=== PATIENT | male | born 1950 | race Caucasian/White ===

== ENCOUNTER 2018-01-14 09:25 | Outpatient (CLI) | payer MEDICARE ==
--- NOTE | 2018-01-14 15:18 | PET ---
PET CT: HISTORY: 67-year-old male with left lung mass and left adrenal mass. Smoker. Coughing mucus frequently. TECHNIQUE: PET scanning with CT attenuation correction was performed from the base of the brain through the prox imal thighs following the intravenous administration of 13 mCi of F18-FDG in the left antecubital fos sa. Imaging was performed after an uptake interval of 48 minutes. COMPARISON: None. CORRELATION: CT chest dated 12/23/17 from [facility]. FINDINGS: There is hypermetabolic activity in a right infraorbital paranasal soft tissue mass with a SUV of 8.1 . There is increased FDG localization in the left hilar/perihilar mass noted on the CT scan with a SUV of 12.2. There is also increased FDG localization in the peripheral posterior left lower lobe lung mass with a SUV of 4.2. Hypermetabolic subcarinal lymph node is seen with a SUV of 3.3. No rachel hypermetabolism is seen in the neck, axilla, abdomen, pelvis, or inguinal regions. No hyperm etabolic liver, adrenal, or skeletal lesions are seen. The left adrenal nodule seen on the CT scan de monstrates no abnormal FDG localization. The CT scan used for attenuation correction demonstrates no evidence of pleural effusions or ascites. There is sigmoid diverticulosis. There is physiologic activity in the GI and tracts, and visualized portions of the brain. IMPRESSION: Findings are suspicious for left lung malignancy and metastatic disease. POS: [facility]
== END 2018-01-14 09:26 | disposition home or self-care (01) ==
LOC: PET 09:25
PROVIDERS: ATTEND Internal Medicine
DX: R91.1 Solitary pulmonary nodule (principal)
CPT/HCPCS: 78815; A9552

== ENCOUNTER 2018-01-26 08:55 | Day surgery (SDC) | payer MEDICARE ==
[2018-01-26] MEDS ORDERED: Fentanyl 100 MCG/2 ML VIAL ONE (08:57)
[2018-01-26] MEDS ORDERED: Lidocaine 1% (PF) 30 ML VIAL ONE (08:58)
[2018-01-26] MEDS ORDERED: Lidocaine 4% PF 5 ML AMP NEB SCH (09:15)
[2018-01-26] MEDS ORDERED: Sodium Chloride 0.9% 1,000 ML IV SCH (09:15)
--- NOTE | 2018-01-26 11:48 | OP ---
DATE OF PROCEDURE: 01/26/2018 SERVICE: Pulmonary Medicine PROCEDURE: Fiberoptic bronchoscopy with: 1. Visual airway inspection. 2. Bronchial washing from the left lung. 3. Endobronchial biopsy from the left lung. 4. Solomon needle FNA of Station 7 subcarinal lymph node. PREPROCEDURE DIAGNOSES: 1. Pulmonary mass. 2. Mediastinal lymphadenopathy. POSTPROCEDURE DIAGNOSES: 1. Pulmonary mass. 2. Mediastinal lymphadenopathy. PROCEDURE INTERNET SALES REPRESENTATIVE: Alex Delgado M.D. MEDICATIONS USED: For a list of medications use, please refer to anesthesia documentation. PREANESTHESIA ASSESSMENT: H&P had been performed. The patient's medications and allergies were reviewed. Informed consent was obtained after discussing risks, benefits, and rationale for performing the procedure as well as alternative options. DESCRIPTION OF PROCEDURE: A timeout was performed identifying the correct procedure with name and date of . A diagnostic fiberoptic bronchoscope was introduced through the 8.0 endotracheal tube. The bronchoscope was advanced into the trachea where a tracheobronchial tree inspection was carried out with clear identification of the right upper lobe, right middle lobe, right lower lobe. There was an endobronchial lesion that prevented passing the bronchoscope into the left upper lobe. That being said, I could see the opening into both of these things and the instruments were able to pass through these strictures without difficulty. There was certainly endobronchial changes that were present at this location. Outside of this, anatomy was normal to the segmental level. Bronchial washing was obtained from the left lung. Endobronchial biopsies were obtained from the distal left main stem bronchus at the bifurcation of the left upper lobe and left lower lobe. Then a Solomon needle FNA of Station 7 was performed. Hemostasis was verified and the bronchoscope was subsequently removed from the patient. FINDINGS: 1. Endobronchial mass in the distal left main stem bronchus at the bifurcation of the left upper lobe and left lower lobe with inability to pass the scope into the left upper lobe. Instruments could easily pass into both the left upper lobe and left lower lobe. The left lower lobe was also stenotic, but all distal segments were identified. 2. Secretions were moderate and thick/mucoid without significant purulence. SPECIMENS OBTAINED: 1. Bronchial washing for cytology. 2. Endobronchial biopsy of the left mainstem endobronchial lesion. 3. Solomon needle FNA of Station 7, subcarinal lymph node. COMPLICATIONS: None. ESTIMATED BLOOD LOSS: Two mL. FLUOROSCOPY TIME: None. DISPOSITION The patient will be discharged home if he meets criteria in the postanesthesia care unit. STEFFEN
[2018-01-26] MEDS ORDERED: PROPOFOL 200 MG/20 ML VIAL ONE (16:47)
[2018-01-26] MEDS ORDERED: Lidocaine 1% PF 5 ML VIAL ONE (16:47)
[2018-01-26] MEDS ORDERED: Dexamethasone 20 MG/5 ML VIAL ONE (16:47)
[2018-01-26] MEDS ORDERED: Succinylcholine Chloride 20 MG/ML 10 ml SYRINGE FS ONE (16:47)
[2018-01-26] MEDS ORDERED: Ondansetron HCl/PF 4 MG/2 ML Vial ONE (16:47)
[2018-01-26] MEDS ORDERED: Glycopyrrolate 0.2 MG/ML 5 ML SYRINGE ONE (16:47)
== END 2018-01-26 13:35 | disposition home or self-care (01) ==
LOC: SDC 08:55
PROVIDERS: ATTEND Internal Medicine
PROC: 0BB78ZX Excision of Left Main Bronchus, Via Natural or Artificial Opening Endoscopic, Diagnostic (ICD-10-PCS; principal; 2018-01-26)
PROC: 07D78ZX Extraction of Thorax Lymphatic, Via Natural or Artificial Opening Endoscopic, Diagnostic (ICD-10-PCS; 2018-01-26)
DX: C34.02 Malignant neoplasm of left main bronchus (principal); R59.0 Localized enlarged lymph nodes; I25.10 Atherosclerotic heart disease of native coronary artery without angina pectoris; I10 Essential (primary) hypertension; E78.5 Hyperlipidemia, unspecified; K21.9 Gastro-esophageal reflux disease without esophagitis; F17.210 Nicotine dependence, cigarettes, uncomplicated; Z79.82 Long term (current) use of aspirin; Z79.2 Long term (current) use of antibiotics; Z79.899 Other long term (current) drug therapy
CPT/HCPCS: 88112; 88173; 88305; 88313; 88341; 88342; J1100; J2001; J2405; J2704; J3010; J7620

== ENCOUNTER 2018-05-10 12:51 | Inpatient (IN) | payer MEDICARE, MEDICAID ==
[~2018-05-10 12:51] MED LIST: ISOVUE-370 76%-LOCM 1 ML ONE
[2018-05-10 13:32] LABS: #Basophils 0.1 thou/uL (0.0-0.2); #Lymphocytes 0.2 thou/uL (1.20-3.40); #Monocytes 0.6 thou/uL (0.11-0.59); #Neutrophils 5.7 thou/uL (1.40-6.50); %Basophils 1.1 % (0.0-1.0); %Eosinophils 0.4 % (0.0-10.0); %Lymphocytes 2.7 % (21.0-51.0); %Monocytes 9.8 % (0.0-10.0); Hemoglobin 11.4 g/dL (14.0-18.0); Mean Corpuscular HGB CONC 35.7 g/dL (32.0-36.0); Mean Corpuscular Hemoglobin 34.1 pg (27.0-31.0); Mean Corpuscular Volume 95.6 fL (78.0-98.0); Platelet Count 101 thou/uL (130-400); RBC Distribution Width 17.4 % (11.5-14.5); Red Blood Cell (RBC) Count 3.33 mill/uL (4.70-6.10); White Blood Cell (WBC) Count 6.6 thou/uL (4.8-10.8)
[2018-05-10 13:36] LABS: PTT 28.2 SEC (22.9-36.1)
[2018-05-10 13:37] LABS: D-Dimer Test 0.94 *mcg/mL (0.27-0.43)
[2018-05-10] MEDS ORDERED: Albuterol Sulfate 2.5 mg/0.5 ml Neb ONE (13:41)
[2018-05-10] MEDS ORDERED: Albuterol Sulfate 2.5 mg/3 ml Neb ONE (13:41)
[2018-05-10 13:53] LABS: ALT (SGPT) 9 U/L (8-55); AST (SGOT) 10 U/L (5-34); Albumin 3.6 g/dL (3.4-4.8); Alkaline Phosphatase 74 U/L (40-150); Anion Gap 14 mmol/L (10-20); BUN (Urea Nitrogen) 20 mg/dL (8.4-25.7); Bilirubin, Total 0.4 mg/dL (0.2-1.2); Calc. Creatinine Clearance 0 mL/min (70-130); Calcium 8.9 mg/dL (7.8-10.44); Carbon Dioxide 20 mmol/L (23-31); Chloride 105 mmol/L (98-107); Estimated GFR-MDRD 67; Globulin 2.9 g/dL (2.4-3.5); Glucose 160 mg/dL (80-115); Lipase 12 U/L (8-78); Magnesium 1.8 mg/dL (1.6-2.6); Protein, Total 6.5 g/dL (5.8-8.1); Sodium 135 mmol/L (136-145)
[2018-05-10 13:57] LABS: CKMB 1.2 ng/mL (0-6.6); Troponin I Less than 0.010 ng/mL (< 0.028)
--- NOTE | 2018-05-10 14:18 | RAD ---
CHEST ONE VIEW UPRIGHT PORTABLE: Date: 05-10-18 History: 67-year-old male with history of shortness of breath. History of lung cancer with wheezing. Comparison: 12-17-17 FINDINGS: Monitor leads overlie the chest. Post underlying sternotomy. Poorly circumscribed mass overlying and posterior to the left hilum, stable. Increased linear and interstitial markings in the right lung wit h some blunting of the costophrenic angles bilaterally. Biapical pleural thickening. IMPRESSION: Overall stable poorly circumscribed mass overlying and posterior to the left hilum. Scattered chronic lung changes, more so in the right lung. POS: [facility]
[2018-05-10] MEDS ORDERED: cefTRIAXone\\ROCEPHIN 1 GM VIAL ONE (14:38)
[2018-05-10] MEDS ORDERED: methylPREDNISolone Sod Succ/PF 125 MG/2 ML VIAL ONE (14:38)
[2018-05-10] MEDS ORDERED: Meperidine HCl/PF 25 MG/ML VIAL ONE (15:06)
--- NOTE | 2018-05-10 15:45 | CT ---
CHEST CT ANGIOGRAM WITH 3D RENDERING: History: 67-year-old male with shortness of breath and right upper quadrant abdominal pain, getting worse. Comparison: 12-13-[address] scan with IV contrast. FINDINGS: No significant CT evidence of a cute pulmonary embolism. 3.2 cm diameter posterior left hilar mass wi th narrowing of left lower lobe bronchi and marked narrowing of the left lower lobe pulmonary artery segment with some narrowing of lingular bronchi and lingular pulmonary artery. There is a second mass with associate cavity measuring approximately 1.2 x 1.9 cm in the posterior left lower lobe. This ma ss is increased somewhat in size when compared to the prior 12-23-17 study. The more poorly circumscri bed left hilar mass does not appear to have significantly increased in size. There is extensive bilat eral and interstitial reticular nodular parenchymal changes and bilateral emphysema changes, evidence for chronic interstitial lung disease. No significant acute pleural effusion. Visualized upper abdom en is unremarkable. Small hiatal hernia. IMPRESSION: No CT evidence for significant acute PE. Large poorly circumscribed spiculated mass involving the lef t hilum, evidence for neoplasm with narrowing of multiple lower lobe bronchi and lower lobe pulmonary arteries as well as some lingular bronchi and lingular pulmonary artery. There is a second mass in t he left lower lobe associated with a cavity, approximately 1.2 x 1.9 cm, increasing in size from the prior study. The left hilar mass shows little overall change. Fairly extensive bilateral reticular no dule and interstitial and bullous emphysema changes evidence for chronic lung disease. Other findings as above. POS: [facility]
--- NOTE | 2018-05-10 16:00 | RAD ---
CHEST ONE VIEW: History: Central line placement. Comparison: Earlier same date. FINDINGS/IMPRESSION: Tip of a right internal jugular central venous catheter overlies the superior vena cava. No evidence of pneumothorax. Other findings are stable. POS: [facility]
[2018-05-10] MEDS ORDERED: Sodium Chloride 0.45% 1,000 ML IV SCH (19:00)
[2018-05-10] MEDS ORDERED: Acetaminophen 325 MG TAB PO PRN (19:01)
[2018-05-10] MEDS ORDERED: Ondansetron ODT 4 MG TAB PO PRN (19:01)
[2018-05-10] MEDS ORDERED: hydrALAZINE 20 MG/ML VIAL SLOW IVP PRN (19:01)
[2018-05-10] MEDS ORDERED: Ondansetron HCl/PF 4 MG/2 ML Vial IVP PRN (19:01)
[2018-05-10 19:17] VITALS: BMI 27.6
[2018-05-10] MEDS: Sodium Chloride 0.9% 1,000 ML IV SCH (19:45)
[2018-05-10] MEDS: Vancomycin HCl 1 GM in Premix Bag 1 BAG IVPB SCH (21:12)
--- NOTE | 2018-05-10 23:14 | HP ---
PRIMARY CARE PHYSICIAN: Dr. Diamante Fleming. CHIEF COMPLAINT: Shortness of breath. HISTORY OF PRESENT ILLNESS: Please note that the history of present illness is very limited as the p atient is extremely dyspneic. He is on BiPAP and when he talks, his oxygen saturations dropped into the 70s. He is, however, very cooperative and in quite a good mood. Mr. Montalvo is a 67-year-old gen tleman that was recently diagnosed with lung cancer. He has a fairly large mass in the left hilum. He was in his usual state of health until recently when he began complaining of severe dyspnea on exe rtion. He says he was unable to walk even 15 feet without becoming severely short of breath. He was tremulous and feeling dizzy. He also notes a cough which was productive of pinkish to reddish blood . He denies any chest pain; however, no fevers, no chills. As a result, he came to the emergency ro om for evaluation where he was found to be hypoxic. He was given IV steroids as well as neb treatmen t without much improvement in his symptoms. He required placement on BiPAP. He is being admitted fo r further evaluation and treatment. Chest x-ray and CT scan did not show any significant changes oth er than the large hilar mass and some interstitial lung changes which could be associated with chroni c obstructive pulmonary disease. REVIEW OF SYSTEMS: All systems were reviewed and are negative except for that mentioned in the histo ry of present illness. PAST MEDICAL HISTORY: Significant for lung cancer, presumed emphysema, hyperlipidemia, hypertension, gastroesophageal reflux disease, coronary artery disease. PAST SURGICAL HISTORY: He has had a bypass grafting x3. ALLERGIES: No known drug allergies. SOCIAL HISTORY: He is , has 2 children. He smokes about a half a pack a day for 58 years. Denies any alcohol use. CODE STATUS: FULL CODE. However, he would not want to be on the ventilator for a prolonged period o f time. He says his son was his medical surrogate; however, he says he would like his sister to be i ncluded in that because he is more available and her name is Sarah Arroyo. CURRENT MEDICATIONS: Aspirin 81 mg daily, Mucinex 1200 mg daily, isosorbide extended release 30 mg d aily, lisinopril 10 mg once a day, Nexium 20 mg a day. PHYSICAL EXAMINATION: GENERAL: The patient is alert and oriented. He is actually comfortable on BiPAP. However, he does desat very easily with just a few words. VITAL SIGNS: His blood pressure was 106/57, heart rate 102, respiratory rate of 24, and he is afebri le. HEENT: Pupils are equal, round, and reactive. Extraocular muscles are intact. His sclerae are anic teric. Throat: There is no erythema, no exudates. NECK: There is no adenopathy, no bruits. LUNGS: He has got fairly tight wheezing throughout his lung sanders in both the right and the upper a nd lower lobes. I did not appreciate any rales. CARDIOVASCULAR: Heart rate is slightly rapid. It is regular. He has a grade 2/6 systolic murmur. ABDOMEN: Soft, it is nontender, nondistended. Positive for bowel sounds. There is no rebound or gu arding. EXTREMITIES: There is no clubbing, cyanosis, no edema. NEUROLOGIC: The exam is grossly nonfocal with cranial nerves II-XII being grossly intact. Muscle st rength is 5/5 in both his upper and lower extremities. SKIN AND INTEGUMENT: There are no skin changes. No rash. LABORATORY RESULTS: Sodium 135, potassium 4.0, chloride is 105, CO2 is 20, BUN of 20, creatinine 1.0 9, glucose is 160. His troponin is less than 0.010. White blood cell count 6.6, hemoglobin 11.4, he matocrit is 31.9, platelet count is 101. INR is 1.0. D-dimer was 0.94. On his CT angiogram, there was no evidence of pulmonary embolism. There was a large poorly circumscribed spiculated mass involv ing the left hilum and narrowing of the lower lobe bronchi, extensive reticular nodular change. ASSESSMENT AND PLAN: This is a pleasant 67-year-old gentleman who presents to the emergency room wit h acute respiratory distress with hypoxemia, likely as a result of chronic obstructive pulmonary dise ase exacerbation; however, a postobstructive pneumonia cannot be ruled out. He is currently on BiPAP . He will be admitted to the [facility]. Pulmonary medicine will be consulted. He will be placed on broa d spectrum IV antibiotics as well as DuoNeb treatments and IV steroids. He will also be placed on de ep venous thrombosis and gastrointestinal prophylaxis. With regards to hypertension, we will use his usual antihypertensive medications as well as p.r.n. me dications for additional blood pressure control. Continue a proton pump inhibitor and further recomm endations will depend on the patient's clinical course.
[2018-05-10] MEDS: Piperacillin/Tazobactam 3.375 GM in Sodium Chloride 0.9% 100 ML IVPB SCH (23:59)
[2018-05-11] MEDS: Piperacillin/Tazobactam 3.375 GM in Sodium Chloride 0.9% 100 ML IVPB SCH ×4 (05:33→23:35)
[2018-05-11 06:21] LABS: Anion Gap 12 mmol/L (10-20); BUN (Urea Nitrogen) 14 mg/dL (8.4-25.7); Calc. Creatinine Clearance 101 mL/min (70-130); Calcium 9.3 mg/dL (7.8-10.44); Carbon Dioxide 22 mmol/L (23-31); Chloride 106 mmol/L (98-107); Estimated GFR-MDRD Greater than 90; Glucose 194 mg/dL (80-115); Potassium 4.3 mmol/L (3.5-5.1); Sodium 136 mmol/L (136-145)
[2018-05-11 06:30] LABS: #Lymphocytes 0.1 thou/uL (1.20-3.40); #Monocytes 0.1 thou/uL (0.11-0.59); #Neutrophils 2.4 thou/uL (1.40-6.50); %Lymphocytes 4.4 % (21.0-51.0); %Monocytes 2.3 % (0.0-10.0); %Neutrophils 92.3 % (42.0-75.0); Hemoglobin 10.4 g/dL (14.0-18.0); Mean Corpuscular Hemoglobin 34.8 pg (27.0-31.0); Mean Corpuscular Volume 96.8 fL (78.0-98.0); Mean Platelet Volume 7.4 fL (7.4-10.4); Platelet Count 87 thou/uL (130-400); RBC Distribution Width 17.4 % (11.5-14.5); Red Blood Cell (RBC) Count 2.98 mill/uL (4.70-6.10); White Blood Cell (WBC) Count 2.6 thou/uL (4.8-10.8)
[2018-05-11] MEDS: Enoxaparin Sodium 30 MG/0.3 ML SYRINGE SC SCH (08:27)
[2018-05-11] MEDS: Pantoprazole 40 MG VIAL IVP SCH (08:27)
[2018-05-11] MEDS: Vancomycin HCl 1 GM in Premix Bag 1 BAG IVPB SCH ×2 (08:27→21:00)
--- NOTE | 2018-05-11 09:10 | PDOC.PN ---
- Subjective Encounter Start Date: 05/11/18 Encounter Start Time: 09:09 Mr. Montalvo was seen today in follow-up of Acute respiratory failure, likely from COPD exacerbation. He is feeling better. He has not required BiPAP since last night. - Objective Resuscitation Status: Resuscitation Status FULL:Full Resuscitation MAR Reviewed: Yes Vital Signs & Weight: Vital Signs (12 hours) Temp Pulse Resp BP Pulse Ox 05/11/18 07:32 93 15 99 05/11/18 07:31 97.4 F L 102 H 15 123/69 100 05/11/18 03:43 97.1 F L 105 H 18 124/61 100 05/10/18 23:43 97.4 F L 108 H 18 106/62 100 05/10/18 23:02 99 Weight Weight 172 lb 4.8 oz I&O: 05/10/18 05/11/18 05/12/18 06:59 06:59 06:59 Intake Total 1352 Output Total 950 Balance 402 Result Diagrams: 05/11/18 05:51 05/11/18 05:51 Phys Exam - Physical Examination HEENT: PERRLA Respiratory: wheezing present + expiratory wheeze bilaterally, no rales Cardiovascular: RRR, no significant murmur, no rub Gastrointestinal: soft, non-tender, positive bowel sounds Musculoskeletal: no edema + Palpable pulses Neurological: non-focal, moves all 4 limbs Dx/Plan (1) Acute respiratory failure with hypoxemia Code(s): J96.01 - ACUTE RESPIRATORY FAILURE WITH HYPOXIA Status: Acute (2) Lung cancer Code(s): C34.90 - MALIGNANT NEOPLASM OF UNSP PART OF UNSP BRONCHUS OR LUNG Status: Acute (3) Benign essential hypertension Code(s): I10 - ESSENTIAL (PRIMARY) HYPERTENSION Status: Chronic - Plan * Acute respiratory failure- likely from COPD exacerbation- discussed with Dr. Barrera- will continue Duonebs, and IV antibiotics * Continue steroids, but will consider tappering dose soon * HTN - blood pressure is stable.
[2018-05-11] MEDS ORDERED: Non-Formulary Item 1 EACH (Omeprazole Magnesium [Prilosec Otc] 20 MG) PO PRN (09:14)
--- NOTE | 2018-05-11 10:31 | CON ---
DATE OF SERVICE: 05/11/2018 CONSULTING PHYSICIAN: Dr. Robert from the Hospitalist group. REASON FOR CONSULTATION: COPD exacerbation. This consult encompassed 70 minutes of time. Of that time, greater than 50% spent with the patient a nd/or on the patient's unit in the hospital. HISTORY OF PRESENT ILLNESS: Mr. Montalvo is a pleasant 67-year-old male who has been followed by Dr. Oralia almanza and my office. 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 He has just completed several rounds of chemotherapy. He has also done 33 radiation treatments. Over t he last 3 or 4 days he has been experiencing increasing cough and shortness of breath. He did have 1 episode of hemoptysis which he says was light. He is smoking about half pack of small cigars every day. He has had no fever, chills, but has a profound cough with green sputum production. PAST MEDICAL HISTORY: 1. Squamous cell carcinoma of the lung 2. Possible chronic obstructive pulmonary disease - I am not sure about the workup, he has had for t hat in the past. 3. Hyperlipidemia. 4. Hypertension. 5. Gastroesophageal reflux. 6. Coronary artery disease. PAST SURGICAL HISTORY: Coronary bypass grafting surgery. ALLERGIES: None. SOCIAL HISTORY: , smokes half pack per day. Does not consume alcohol. MEDICATIONS PRIOR TO ADMISSION: Aspirin, Mucinex, isosorbide, lisinopril, Nexium. He has Breo and A noro at the house, but is not using either. He is also using albuterol as needed. REVIEW OF SYSTEMS: Twelve point review of systems was otherwise negative. PHYSICAL EXAMINATION: VITAL SIGNS: Temperature 97.4, pulse 93, respirations 15, O2 sat 99%, blood pressure 123/69. GENERAL: He is awake and alert and in no overt distress. HEENT: Pupils are reactive. Sclerae icteric. Oropharynx clear. NECK: No adenopathy, no JVD, no bruits. LUNGS: Coarse rhonchi bilaterally. CARDIOVASCULAR: S1, S2 regular, without murmur. ABDOMEN: Soft and nontender. EXTREMITIES: He has a radiation burn over his back and has 2+ clubbing, no edema. LABORATORY DATA: White blood cell count 2.6, hematocrit 28.8, platelet count 87. INR 1.0, PTT 28.2. Sodium 136, potassium 4.3, chloride 106, CO2 22, BUN 14, creatinine 0.7, glucose 194. CT was revie thu. I do not see anything aside from the lung mass as mentioned. ASSESSMENT: 1. Chronic obstructive pulmonary disease with acute exacerbation. 2. Lung cancer. 3. Continued tobacco abuse. PLAN: 1. I discussed with Dr. Robert. I agree with current antibiotic choice to proceed on vancomycin. I f his cultures come back negative, then the vancomycin can probably be stopped. 2. I agree with ster oids and nebulization treatments. 3. Can probably transfer to medical this afternoon if he does not need BiPAP.
[2018-05-11] MEDS: Sodium Chloride 0.9% 1,000 ML IV SCH (12:13)
[2018-05-11] MEDS: guaiFENesin ER 600 MG TAB PO PRN ×2 (12:13→23:35)
[2018-05-11] MEDS: Budesonide 0.5 MG/2 ML NEB INH SCH (19:13)
[2018-05-11] MEDS: Arformoterol 15 MCG/2 ML NEB NEB SCH (19:14)
[2018-05-12] MEDS ORDERED: Nitroglycerin 0.4 MG TAB (25 Tab Bottle) ONE (04:50)
[2018-05-12] MEDS: Piperacillin/Tazobactam 3.375 GM in Sodium Chloride 0.9% 100 ML IVPB SCH ×3 (05:03→18:00)
[2018-05-12] MEDS: Sodium Chloride 0.9% 1,000 ML IV SCH (05:03)
[2018-05-12 06:17] LABS: CKMB 2.5 ng/mL (0-6.6); Troponin I Less than 0.010 ng/mL (< 0.028)
[2018-05-12] MEDS: Budesonide 0.5 MG/2 ML NEB INH SCH ×2 (07:40→18:24)
[2018-05-12] MEDS: Arformoterol 15 MCG/2 ML NEB NEB SCH ×2 (07:41→18:24)
--- NOTE | 2018-05-12 08:22 | PRG ---
DATE OF SERVICE: 05/12/2018 SUBJECTIVE: The patient feels better. He says he has been able to get up and walk around some. OBJECTIVE: VITAL SIGNS: Temperature is 97.7, pulse 106, respiratory rate 21, O2 sat 100%, blood pressure 119/60 . HEENT: Unremarkable. NECK: No JVD. LUNGS: Coarse breath sounds bilaterally. CARDIOVASCULAR: S1, S2 regular. ABDOMEN: Soft. EXTREMITIES: No edema. LABORATORY DATA: No new labs were done today. ASSESSMENT: 1. CO2 exacerbation. 2. Lung cancer. 3. Intermittent hemoptysis. PLAN: The patient will be transferred out to the medical floor for continued antibiotics, nebulizati on treatments, and IV steroids. He might be able to go home as soon as tomorrow. I am somewhat susp icious that the hemoptysis could be from endobronchial tumor.
[2018-05-12 08:27] LABS: #Lymphocytes 0.2 thou/uL (1.20-3.40); #Monocytes 0.3 thou/uL (0.11-0.59); #Neutrophils 4.5 thou/uL (1.40-6.50); %Eosinophils 0.3 % (0.0-10.0); %Lymphocytes 4.4 % (21.0-51.0); %Monocytes 5.2 % (0.0-10.0); %Neutrophils 90.1 % (42.0-75.0); Hemoglobin 10.3 g/dL (14.0-18.0); Mean Corpuscular Hemoglobin 34.3 pg (27.0-31.0); Mean Corpuscular Volume 98.1 fL (78.0-98.0); Mean Platelet Volume 7.3 fL (7.4-10.4); Platelet Count 78 thou/uL (130-400)
[2018-05-12 08:44] LABS: Vancomycin, Trough 12.8 ug/mL
[2018-05-12 08:45] LABS: Anion Gap 13 mmol/L (10-20); BUN (Urea Nitrogen) 13 mg/dL (8.4-25.7); Calc. Creatinine Clearance 92 mL/min (70-130); Carbon Dioxide 21 mmol/L (23-31); Chloride 106 mmol/L (98-107); Estimated GFR-MDRD Greater than 90; Glucose 185 mg/dL (80-115); Potassium 4.1 mmol/L (3.5-5.1); Sodium 136 mmol/L (136-145)
[2018-05-12] MEDS ORDERED: Lisinopril 10 MG TAB PO SCH (09:00)
[2018-05-12] MEDS: Aspirin 325 mg Enteric Coated Tablet PO SCH (10:11)
[2018-05-12] MEDS: Lisinopril 20 MG TAB PO SCH (10:11)
[2018-05-12] MEDS: Pantoprazole 40 MG VIAL IVP SCH (10:11)
[2018-05-12] MEDS: Vancomycin HCl 1 GM in Premix Bag 1 BAG IVPB SCH (10:11)
[2018-05-12] MEDS: guaiFENesin ER 600 MG TAB PO PRN (10:25)
[2018-05-12] MEDS ORDERED: Dextrose 5% in Water 1,000 ML IV PRN (10:32)
[2018-05-12] MEDS ORDERED: HumaLOG 300 UNITS/3 ML VIAL SC PRN ×2 (10:32)
[2018-05-12] MEDS ORDERED: Dextrose 50% Abboject 50 ML SYRINGE SLOW IVP PRN (10:32)
--- NOTE | 2018-05-12 10:35 | PDOC.PN ---
- Subjective Encounter Start Date: 05/12/18 (f/u chest pain) Encounter Start Time: 10:33 Subjective: Pt with episode of chest pain this AM, relieved with ntg. Denies -: any pain/concerns/n/v/abd pain or new sx. At rest, breathing -: improved. - Objective Resuscitation Status: Resuscitation Status FULL:Full Resuscitation Vital Signs & Weight: Vital Signs (12 hours) Temp Pulse Resp BP BP Pulse Ox 05/12/18 10:11 110/56 L 05/12/18 08:00 98.0 F 114 H 20 100 05/12/18 07:39 114 H 20 100 05/12/18 07:28 97.7 F 106 H 21 H 119/60 100 05/12/18 03:59 97.8 F 113 H 17 103/68 100 05/12/18 00:01 98.4 F 110 H 20 123/57 L 100 05/11/18 23:12 99 Weight Weight 172 lb 4.8 oz I&O: 05/11/18 05/12/18 05/13/18 06:59 06:59 06:59 Intake Total 1352 2720 Output Total 950 2550 Balance 402 170 Result Diagrams: 05/12/18 08:12 05/12/18 08:12 EKG Reviewed by me: Yes (sinus 90's-130's) Phys Exam - Physical Examination Constitutional: NAD Respiratory: no wheezing, no rales, no rhonchi fair air movement Cardiovascular: RRR, no significant murmur Gastrointestinal: soft, non-tender, no distention, positive bowel sounds Musculoskeletal: no edema, pulses present Neurological: non-focal Psychiatric: normal affect Skin: no rash Dx/Plan (1) Acute respiratory failure with hypoxemia Code(s): J96.01 - ACUTE RESPIRATORY FAILURE WITH HYPOXIA Status: Resolved (2) COPD with exacerbation Code(s): J44.1 - CHRONIC OBSTRUCTIVE PULMONARY DISEASE W (ACUTE) EXACERBATION Status: Acute (3) Lung cancer Code(s): C34.90 - MALIGNANT NEOPLASM OF UNSP PART OF UNSP BRONCHUS OR LUNG Status: Acute Qualifiers: Laterality: left Lung location: unspecified part of lung Qualified Code(s ): C34.92 - Malignant neoplasm of unspecified part of left bronchus or lung (4) GERD (gastroesophageal reflux disease) Code(s): K21.9 - GASTRO-ESOPHAGEAL REFLUX DISEASE WITHOUT ESOPHAGITIS Status: Chronic Qualifiers: Esophagitis presence: esophagitis presence not specified Qualified Code(s) : K21.9 - Gastro-esophageal reflux disease without esophagitis (5) Anemia Code(s): D64.9 - ANEMIA, UNSPECIFIED Status: Acute Qualifiers: Anemia type: other cause Other causes of anemia: antineoplastic chemotherapy Qualified Code(s): D64.81 - Anemia due to antineoplastic chemotherapy; T45.1X5A - Adverse effect of antineoplastic and immunosuppressive drugs, initial encounter; T45.1X5A - Adverse effect of antineoplastic and immunosuppressive drugs, initial encounter (6) Hypertension Code(s): I10 - ESSENTIAL (PRIMARY) HYPERTENSION Status: Chronic Qualifiers: Hypertension type: essential hypertension Qualified Code(s): I10 - Essential (primary) hypertension (7) Hyperlipidemia Code(s): E78.5 - HYPERLIPIDEMIA, UNSPECIFIED Status: Acute (8) Tachycardia Code(s): R00.0 - TACHYCARDIA, UNSPECIFIED Status: Acute (9) Chest pain Code(s): R07.9 - CHEST PAIN, UNSPECIFIED Status: Acute (10) Thrombocytopenia Code(s): D69.6 - THROMBOCYTOPENIA, UNSPECIFIED Status: Acute - Plan * Appreciate Pulmonology consult - transfer to floor, on steroids/abx/nebs * Elevated blood sugar likely secondary to steroids - add SSI and checks * d/c IVF and IV protonix * place PIV and d/c central line * anemia stable and likely from chemotherapy * wbc back to normal * chest pain resolved - pt back on long-acting nitrate. * Tachycardia likely secondary to steroids and nebs. * * case management for home health - anticipate pt may benefit from nursing checks and PT - consult placed * PT/OT evaluation. * continue home meds as ordered * * dvt prophy - scd's. d/c lovenox due to thrombocytopenia. * gi prophy - not indicated * code status full * * reviewed plan of care with patient, no questions or further needs at end of eval.
[2018-05-12] MEDS: Enoxaparin Sodium 30 MG/0.3 ML SYRINGE SC SCH (12:39)
[2018-05-13] MEDS: Piperacillin/Tazobactam 3.375 GM in Sodium Chloride 0.9% 100 ML IVPB SCH ×2 (00:33→06:00)
[2018-05-13] MEDS ORDERED: Nitroglycerin 0.4 MG TAB (25 Tab Bottle) SL PRN (04:31)
[2018-05-13 05:10] LABS: Anion Gap 12 mmol/L (10-20); BUN (Urea Nitrogen) 12 mg/dL (8.4-25.7); Calc. Creatinine Clearance 96 mL/min (70-130); Calcium 9.2 mg/dL (7.8-10.44); Carbon Dioxide 22 mmol/L (23-31); Chloride 106 mmol/L (98-107); Estimated GFR-MDRD Greater than 90; Glucose 153 mg/dL (80-115); Potassium 4.4 mmol/L (3.5-5.1); Sodium 136 mmol/L (136-145)
[2018-05-13 05:29] LABS: #Lymphocytes 0.1 thou/uL (1.20-3.40); #Monocytes 0.2 thou/uL (0.11-0.59); #Neutrophils 3.5 thou/uL (1.40-6.50); %Eosinophils 0.3 % (0.0-10.0); %Lymphocytes 2.4 % (21.0-51.0); %Monocytes 6.2 % (0.0-10.0); Anisocytosis SLIGHT = 6-15 cells (100X) (0-5/hpf); Hemoglobin 9.9 g/dL (14.0-18.0); MDiff Complete? YES; Mean Corpuscular HGB CONC 35.3 g/dL (32.0-36.0); Mean Corpuscular Hemoglobin 35.1 pg (27.0-31.0); Mean Corpuscular Volume 99.4 fL (78.0-98.0); Mean Platelet Volume 7.9 fL (7.4-10.4); Ovalocytes SLIGHT = 2-5 cells (100X) (0-1/hpf); PLT Morphology Comment Appears Decreased; Platelet Count 85 thou/uL (130-400); RBC Distribution Width 18.3 % (11.5-14.5); Red Blood Cell (RBC) Count 2.82 mill/uL (4.70-6.10); White Blood Cell (WBC) Count 3.9 thou/uL (4.8-10.8)
[2018-05-13] MEDS: Budesonide 0.5 MG/2 ML NEB INH SCH (07:38)
[2018-05-13] MEDS: Arformoterol 15 MCG/2 ML NEB NEB SCH (07:38)
--- NOTE | 2018-05-13 08:19 | PRG ---
DATE OF SERVICE: 05/13/2018 Mr. Montalvo reports that he is doing better. He has been able to walk around without much difficulty. He is a little concerned that his heart rate has been somewhat elevated. PHYSICAL EXAMINATION: VITAL SIGNS: Temperature 97.7, pulse 110, respirations 20, O2 sat 90%, pulse 145/84. HEENT: Unremarkable. NECK: No JVD. LUNGS: A few expiratory rhonchi, but overall this is much better than a few days ago. CARDIAC: S1 and S2 regular. ABDOMEN: Soft. EXTREMITIES: No edema. LABORATORY DATA: White blood cell count 3.9, hematocrit 28.0, platelet count 85. Sodium 136, potass ium 4.4, chloride 106, CO2 22, BUN 12, creatinine 0.8, glucose 153. ASSESSMENT: 1. Chronic obstructive pulmonary disease with exacerbation. 2. Lung cancer. 3. Intermittent hemoptysis. 4. Mild thrombocytopenia. PLAN: He is probably stable for discharge. I would consider perhaps holding his aspirin for a day o r two, given his thrombocytopenia. I will transition him over to oral steroids. I think his tachyca rdia may be due to his nebulization treatments and this should be a limited phenomenon.
[2018-05-13] MEDS ORDERED: predniSONE 20 MG TAB PO SCH (09:00)
[2018-05-13] MEDS ORDERED: Amoxicillin/Potassium Clav 875 MG TAB PO SCH (09:00)
[2018-05-13] MEDS: Lisinopril 20 MG TAB PO SCH (09:11)
[2018-05-13] MEDS: Aspirin 325 mg Enteric Coated Tablet PO SCH (09:12)
[2018-05-13 13:38] VITALS: TEMP 97.7
[2018-05-13 14:43] VITALS: BP 137/81
--- NOTE | 2018-05-14 01:46 | DIS ---
DATE OF ADMISSION: 05/10/2018 DATE OF DISCHARGE: 05/13/2018 CONSULTANTS: Dr. Barrera of pulmonology. MEDICATIONS: Reconciled at discharge. DISCONTINUED MEDICATIONS: Aspirin 325 mg. NEW MEDICATIONS: 1. Aspirin 81 mg daily. 2. Prednisone 10 mg tablets 3 tablets daily for 2 days, then 2 tablets daily for 2 days, then 1 tablet daily for 3 days. 3. Augmentin 875 one tablet p.o. b.i.d. for 3 days. CONTINUED MEDICATIONS: 1. Albuterol nebulizer every 6 hours as needed. 2. Imdur 30 mg daily. 3. Lisinopril 20 mg daily. 4. Omeprazole 20 mg daily as needed. 5. Mucinex 600 mg b.i.d. as needed. DISCONTINUED MEDICATION: 1. Aspirin 325 mg due to thrombocytopenia. FOLLOW UP: 1. Dr. Delgado in the pulmonology clinic in 2 weeks to reevaluate breathing. 2. Follow up with Dr. Nevarez as instructed. 3. Follow up with Dr. Thompson the Primary Care Provider within 2 weeks to reevaluate health or to address any other health needs. FINAL DIAGNOSES: 1. Chronic obstructive pulmonary disease with exacerbation. 2. Lung cancer. 3. Intermittent hemoptysis. 4. Pancytopenia secondary to chemotherapy. 5. Mildly elevated blood sugars consistent with steroids. 6. Tachycardia attributed to nebulizer therapy. 7. Coronary artery disease. 8. Gastroesophageal reflux disease. 9. Hypertension. 10. Dyslipidemia. HISTORY OF PRESENT ILLNESS: Mr. Montalvo is a 67-year-old male recently diagnosed with lung cancer who has undergone radiation and chemotherapy, who presented to the emergency room complaining of severe dyspnea. Patient was placed on BiPAP due to the severity of his breathing, and hospitalized for further evaluation. HOSPITAL COURSE: Patient was started on broad spectrum antibiotics, high-dose steroids, and placed in the intermediate care unit. He has progressively improved, and after admission with no longer requiring BiPAP treatment. His antibiotics were changed to oral today, steroids changed to oral as well. Patient is maintaining normal oxygen saturation at rate on room air. He is walking around, and is cleared for discharge to home. He will need to follow up with Pulmonology, Oncology, as well as his primary care provider. The only medication change for the patient is a reduction in his dose of aspirin down to 81 mg due to the thrombocytopenia. PHYSICAL EXAMINATION: VITAL SIGNS: On day of discharge, blood pressure 113/68, pulse 113, temperature 97.7, respirations 18, saturations 94% on room air. GENERAL: Awake, alert, responsive in no apparent distress, able to speak in regular sentences. LUNGS: Clear to auscultation bilateral with improved air movements. HEART: Normal S1, S2. Tachycardic, no audible murmurs. ABDOMEN: Soft with present bowel sounds. EXTREMITIES: No edema. NOGUEIRA FINDINGS AND TEST RESULTS: 1. CBC: 3.9, 9.9, 28.0, 85. 2. Chemistry: 136, 4.4, 106, 22, 12, 0.8, 153. 2. Troponins were negative. Chest x-ray showed there is chest x-ray on 05/10/2018, overall stable, poorly circumscribed mass overlying and posterior to the left hilum, scattered lung changes. CT angiogram on 05/10/2018 shows no evidence for significant acute PE. Large poorly circumscribed spiculated mass involving the left hilum, evidence for neoplasm with multiple lower lobe bronchi and lower lobe pulmonary arteries as well as some lingular bronchi and lingular pulmonary artery. Second mass in the left lower lobe associated with a cavity approximately 1.2 x 1.9 cm increasing in size from the prior study. Fairly extensive bilateral reticular nodule in interstitial and bullous emphysema changes. DIET: Heart-healthy. ACTIVITY: As tolerated. I reviewed with patient this hospitalization, the change in aspirin dosing after discussion with Dr. Nevarez, the followup instructions and see care precautions. He demonstrates understanding. Total time coordinating discharge is 35 minutes. CODE STATUS: FULL. MTDD
--- NOTE | 2018-05-16 23:01 | EKG ---
Test Reason : STAT CP Blood Pressure : / mmHG Vent. Rate : 120 BPM Atrial Rate : 120 BPM P-R Int : 164 ms QRS Dur : 088 ms QT Int : 328 ms P-R-T Axes : 069 002 076 degrees QTc Int : 463 ms Sinus tachycardia Possible Left atrial enlargement Nonspecific ST and T wave abnormality Abnormal ECG When compared with ECG of 10-MAY-2018 12:56, (Unconfirmed) No significant change was found Confirmed by Douglas ONTIVEROS ([id number]) on 05/16/2018 11:00:33 PM Referred By: Gerard VAUGHN Confirmed By:Douglas ONTIVEROS
--- NOTE | 2018-06-05 13:33 | EKG ---
Test Reason : SOB Blood Pressure : / mmHG Vent. Rate : 137 BPM Atrial Rate : 137 BPM P-R Int : 156 ms QRS Dur : 078 ms QT Int : 274 ms P-R-T Axes : 073 013 063 degrees QTc Int : 413 ms Sinus tachycardia Possible Left atrial enlargement Incomplete right bundle branch block Borderline ECG Confirmed by ALISHA CORREA ([id number]), television news video editor MARIE LEE ([id number]) on 06/05/2018 1:32:35 PM Referred By: Confirmed By:ALISHA CORREA
== END 2018-05-13 16:02 | disposition home or self-care (01) | DRG 189 ==
LOC: ERS 12:51 → IMCU/EMU 18:58 → T4-A 05-12 16:32
PROVIDERS: ADMIT Internal Medicine; ATTEND Internal Medicine
DX: J96.01 Acute respiratory failure with hypoxia (principal); D61.810 Antineoplastic chemotherapy induced pancytopenia; J44.1 Chronic obstructive pulmonary disease with (acute) exacerbation; C34.90 Malignant neoplasm of unspecified part of unspecified bronchus or lung; R04.2 Hemoptysis; D69.6 Thrombocytopenia, unspecified; K21.9 Gastro-esophageal reflux disease without esophagitis; E78.5 Hyperlipidemia, unspecified; F17.210 Nicotine dependence, cigarettes, uncomplicated; I25.10 Atherosclerotic heart disease of native coronary artery without angina pectoris; T45.1X5A Adverse effect of antineoplastic and immunosuppressive drugs, initial encounter
CPT/HCPCS: 36415; 36416; 36556; 71045; 71275; 80048; 80053; 80202; 82553; 83690; 83735; 83880; 84484; 85025; 85379; 85610; 85730; 93005; 93010; 94640; 94644; 94660; 96365; 96375; A4216; C9113; G8978-GP-CI; G8979-GP-CI; G8980-GP-CI; G8987-GO-CH; G8988-GO-CH; G8989-GO-CH; J0360; J0696; J1650; J2175; J2543; J2920; J2930; J3370; J7050; J7506; J7611; J7620; J7626

== ENCOUNTER 2018-05-31 11:34 | Outpatient (CLI) | payer MEDICARE ==
--- NOTE | 2018-05-31 13:11 | RAD ---
2 VIEWS CHEST: Date: 05/31/18 HISTORY: Dyspnea. COMPARISON: 05/10/18. FINDINGS: There are sternotomy wires. There is atherosclerosis of aorta. Pulmonary vessels are within normal li mits. There is fullness in the left hilum, incompletely evaluated. Chronic changes in lung parenchyma are noted. There is left apical pleural thickening. There is no pneumothorax or osseous abnormalitie s. IMPRESSION: Left hilar fullness. Consider 2 view chest radiograph. POS: [facility]
== END 2018-05-31 11:35 | disposition home or self-care (01) ==
LOC: RAD 11:34
PROVIDERS: ATTEND Internal Medicine
DX: R06.00 Dyspnea, unspecified (principal); R91.8 Other nonspecific abnormal finding of lung field
CPT/HCPCS: 71046; 80053; 82248; 82378; 83615; 84100; 84550

== ENCOUNTER 2018-06-25 11:43 | Day surgery (SDC) | payer MEDICARE, MEDICAID ==
[2018-06-24 08:50] VITALS: BMI 28.0
[~2018-06-25 11:43] MED LIST changes: +Dexamethasone 20 MG/5 ML VIAL ONE; +Glycopyrrolate 0.2 MG/ML 5 ML SYRINGE ONE; -ISOVUE-370 76%-LOCM 1 ML ONE; +Lidocaine 1% PF 5 ML VIAL ONE; +Ondansetron HCl/PF 4 MG/2 ML Vial ONE; +PHENYLEPHRINE-NS 100 MCG/ML 10 ML SYRINGE ONE; +PROPOFOL 200 MG/20 ML VIAL ONE; +ePHEDrine/0.9% NaCl/PF SYRINGE 50 mg/10 ml ONE
[2018-06-25 12:15] LABS: #Eosinphils 0.1 thou/uL (0.0-0.7); #Lymphocytes 0.5 thou/uL (1.20-3.40); #Monocytes 0.6 thou/uL (0.11-0.59); %Basophils 0.2 % (0.0-1.0); %Eosinophils 1.7 % (0.0-10.0); %Lymphocytes 7.3 % (21.0-51.0); %Monocytes 8.2 % (0.0-10.0); %Neutrophils 82.6 % (42.0-75.0); Hemoglobin 14.3 g/dL (14.0-18.0); Mean Corpuscular HGB CONC 33.9 g/dL (32.0-36.0); Mean Corpuscular Hemoglobin 36.8 pg (27.0-31.0); Mean Platelet Volume 6.9 fL (7.4-10.4); Platelet Count 278 thou/uL (130-400); RBC Distribution Width 13.5 % (11.5-14.5); White Blood Cell (WBC) Count 7.2 thou/uL (4.8-10.8)
[2018-06-25 12:27] LABS: Anion Gap 16 mmol/L (10-20); BUN (Urea Nitrogen) 10 mg/dL (8.4-25.7); Calc. Creatinine Clearance 82 mL/min (70-130); Calcium 9.7 mg/dL (7.8-10.44); Carbon Dioxide 21 mmol/L (23-31); Chloride 102 mmol/L (98-107); Estimated GFR-MDRD 79; Glucose 92 mg/dL (80-115); Potassium 4.1 mmol/L (3.5-5.1); Sodium 135 mmol/L (136-145)
[2018-06-25 13:03] LABS: MDiff Complete? YES; Macrocytosis SLIGHT = 6-15 cells (100X) (0-5/hpf); PLT Morphology Comment Appears Adequate
[2018-06-25] MEDS ORDERED: CEFAZOLIN/Water 2 GM/20 ML SYRINGE ONE (13:22)
[2018-06-25] MEDS ORDERED: Albuterol Sulfate 2.5 mg/3 ml Neb ONE (13:41)
[2018-06-25] MEDS ORDERED: Albuterol Sulfate 2.5 mg/3 ml Neb NEB SCH (13:45)
[2018-06-25] MEDS ORDERED: Fentanyl 100 MCG/2 ML VIAL ONE (15:12)
[2018-06-25] MEDS ORDERED: HYDROmorphone 2 MG/ML VIAL ONE (15:13)
[2018-06-25] MEDS ORDERED: Bupivacaine/Epinephrine 0.25% 30 ML VIAL ONE ×2 (15:22→15:24)
[2018-06-25] MEDS ORDERED: Ophthalmic Irrigation Solution 0 ML ONE (15:22)
[2018-06-25] MEDS ORDERED: Bacitracin Zinc Ointment 30 gm TUBE ONE (15:22)
[2018-06-25] MEDS ORDERED: Thrombin 5000 UNITS/5 ML VIAL ONE (16:38)
[2018-06-25] MEDS ORDERED: Phenylephrine HCL 10 MG/ML VIAL ONE (16:41)
[2018-06-25] MEDS ORDERED: HYDROcodone/Acetaminophen 5/325 mg Tablet ONE (19:16)
--- NOTE | 2018-06-28 10:11 | EKG ---
Test Reason : PREOP Blood Pressure : / mmHG Vent. Rate : 099 BPM Atrial Rate : 099 BPM P-R Int : 168 ms QRS Dur : 088 ms QT Int : 356 ms P-R-T Axes : 075 009 071 degrees QTc Int : 456 ms Normal sinus rhythm Normal ECG When compared with ECG of 12-MAY-2018 04:53, No significant change was found Confirmed by DR. Yahaira GALLEGOS ([id number]) on 06/28/2018 10:10:35 AM Referred By: KRISTINE Confirmed By:DR. Yahaira GALLEGOS
--- NOTE | 2018-06-28 13:39 | OP ---
PREOPERATIVE DIAGNOSIS: Basal cell carcinoma of right cheek (c44.319). POSTOPERATIVE DIAGNOSIS: Basal cell carcinoma of right cheek OPERATIVE FINDINGS: Large basal cell, extending down to the bone with positive margin. PROCEDURES PERFORMED: 1. Wide excision basal cell carcinoma of the right cheek (4.2 cm) (01622). 2. Forehead flap, right cheek (35593). 3. Complex closure forehead (12.5 cm) (71150, 13772 x 2). PROCEDURE IN DETAIL: Following the induction of adequate anesthesia, the patient was prepped and draped in the usual sterile fashion in supine position. The lesion was widely excised. All gross tumor was removed. The 3 benign in the deep margins came back as diffusely positive. The deep margin went right down to the periosteum. The cephalad margin was along the orbital septum. We approached the orbital septum except sparing a few wisps of orbicularis. I made the decision that the patient would need postoperative radiation and did not feel that a further resection was warranted. A paramedian forehead flap with a dopplerable pulse along longitudinal axis was elevated in a deep plane. It was inset using 5-0 Prolene suture. The donor defect required wide elevation of approximately 5 cm medially and laterally to allow for closure with 3-0 PDS suture and 4-0 Monocryl suture. The patient tolerated the procedure well. [facility]
== END 2018-06-25 19:53 | disposition home or self-care (01) ==
LOC: SDC 11:43
PROVIDERS: ATTEND Plastic Surgery
PROC: 0JX10ZB Transfer Face Subcutaneous Tissue and Fascia with Skin and Subcutaneous Tissue, Open Approach (ICD-10-PCS; principal; 2018-06-25)
PROC: 0HB1XZZ Excision of Face Skin, External Approach (ICD-10-PCS; 2018-06-25)
DX: C44.319 Basal cell carcinoma of skin of other parts of face (principal); Z79.84 Long term (current) use of oral hypoglycemic drugs; Z79.82 Long term (current) use of aspirin; Z79.899 Other long term (current) drug therapy
CPT/HCPCS: 36415; 80048; 85025; 88305; 88331; 88332; 93005; 93010; 94640; J1100; J1170; J2001; J2370; J2405; J2704; J3010; J7611

== ENCOUNTER 2018-07-30 10:32 | Outpatient (CLI) | payer MEDICAID, MEDICARE ==
--- NOTE | 2018-07-30 12:03 | RAD ---
TWO VIEW CHEST: CLINICAL HISTORY: Dyspnea. COMPARISON: 05/31/2018 FINDINGS: There has been progression of opacity of the left perihilar region. There is also increasing right p erihilar opacity. Mild pleural-based densities of each inferior hemithorax with adjacent patchy pulm onary and parenchymal density present. There is enlargement of the cardiac silhouette and prominence of the bilateral pulmonary vasculature. No additional significant interval change. IMPRESSION: Increasing bilateral perihilar opacities could be on the basis of pneumonitis and/or a component of e lilibeth. Continued followup is warranted, as underlying neoplasm cannot be excluded on the basis of this exam. CODE T POS: [facility]
== END 2018-07-30 10:33 | disposition home or self-care (01) ==
LOC: RAD 10:32
PROVIDERS: ATTEND Internal Medicine
DX: R06.00 Dyspnea, unspecified (principal); R91.8 Other nonspecific abnormal finding of lung field
CPT/HCPCS: 71046